=== PATIENT | female | born 1980 | race Caucasian/White ===

== ENCOUNTER 2023-12-23 08:47 | Emergency (ER) | payer OTHER ==
[~2023-12-23] VITALS: Ht 162.6 cm; Wt 65.9 kg
[2023-12-23 08:50] VITALS: TEMP 98
[2023-12-23] MEDS ORDERED: IBUP-1492 PO (09:36)
[2023-12-23] MEDS: IBUPROFEN 400 MG TABLET PO ONE (09:38)
[2023-12-23 09:45] VITALS: BP 135/75; PULSE 90; RESP 16
== END 2023-12-23 09:53 | disposition home or self-care (01) ==
LOC: EMS 08:47
DX: S16.1XXA Strain of muscle, fascia and tendon at neck level, initial encounter (principal); Y04.8XXA Assault by other bodily force, initial encounter; Y93.89 Activity, other specified; Y92.89 Other specified places as the place of occurrence of the external cause; Y99.8 Other external cause status
CPT/HCPCS: 99282; Z7502; Z7610